=== PATIENT | female | born 1960 | race Caucasian/White ===

== ENCOUNTER 2022-02-25 17:59 | Emergency (ER) | payer OTHER ==
[~2022-02-25] VITALS: Ht 165.1 cm; Wt 86.2 kg
[2022-02-25] MEDS ORDERED: COSENTYX (150 MG/1 M SQ (18:14)
[2022-02-25] MEDS ORDERED: XATMEP2.5 MG/1 M PO (18:15)
[2022-02-25] MEDS ORDERED: PERCOCET 5-3251 EACH PO (22:28)
== END 2022-02-25 22:42 | disposition home or self-care (01) ==
LOC: ER 17:59
DX: S52.201A Unspecified fracture of shaft of right ulna, initial encounter for closed fracture (principal); S52.91XA Unspecified fracture of right forearm, initial encounter for closed fracture; W19.XXXA Unspecified fall, initial encounter; Y93.9 Activity, unspecified; Y92.831 Amusement park as the place of occurrence of the external cause